=== PATIENT | male | born 1955 | race Caucasian/White ===

== ENCOUNTER 2018-02-27 07:50 | Emergency (ER) | payer BC ==
[~2018-02-27] VITALS: Ht 177.8 cm; Wt 93.2 kg
[2018-02-27 07:57] VITALS: TEMP 97.7
[2018-02-27 08:08] LABS: BASO % 0.6 % (0.0-2.0); EOS # 0.1 (0.0-0.7); EOS % 1.3 % (0-4.0); GRAN # 3.2 (1.4-6.5); GRAN % 67.5 % (42.2-75.2); HEMATOCRIT 43.9 % (42.0-52.0); LYMPH % 21.4 % (20.0-51.0); MEAN CELL VOLUME 94 fl (80.0-100.0); MEAN CORPUSCULAR HEMOGLOBIN 32 pg (27.0-31.0); MEAN CORPUSCULAR HGB CONC 34 g/dl (33.0-37.0); MEAN PLATELET VOLUME 10.2 fl (7.4-10.4); MONO # 0.4 (0.1-0.6); PLATELET COUNT 164 K/mm3 (130-400); RED BLOOD COUNT 4.68 M/mm3 (4.20-5.60); REDCELL DISTRIBUTION WIDTH-CV 12.3 % (11.5-14.5)
[2018-02-27 08:15] LABS: INR 1.7 (0.8-3.0); PROTHROMBIN TIME 19.8 SECONDS (9.7-12.8)
[2018-02-27 08:18] LABS: ALANINE AMINOTRANSFERASE 44 U/L (21-72); ALBUMIN 4.5 gm/dL (3.5-5.0); ALKALINE PHOSPHATASE 72 U/L (50-136); ANION GAP 10 mmol/L (7-16); AST,SGOT 30 U/L (15-37); BILIRUBIN,TOTAL 0.8 mg/dL (0.0-1.0); BLOOD UREA NITROGEN 17 mg/dL (9-20); CALCIUM 9.1 mg/dL (8.4-10.2); CARBON DIOXIDE 29 mmol/L (22-30); CHLORIDE 104 mmol/L (98-107); CREATININE, serum 0.97 mg/dL (0.66-1.25); GLUCOSE 177 mg/dL (74-106); LIPASE 229 U/L (23-300); PARTIAL THROMBOPLASTIN TIME 45.4 SECONDS (26.0-37.0); POTASSIUM 3.9 mmol/L (3.4-5.0); SODIUM 142 mmol/L (137-145); TOTAL PROTEIN 7.6 gm/dL (6.4-8.2)
[2018-02-27 08:31] LABS: TROPONIN-I < 0.012 ng/mL (0.000-0.034)
[2018-02-27] MEDS ORDERED: ASPIRIN 81M81 MG/TA2 PO (09:10)
[2018-02-27] MEDS ORDERED: LIPITOR 40MG TA40 MG PO (09:10)
[2018-02-27] MEDS ORDERED: NORVASC 10MG10 MG PO (09:10)
[2018-02-27] MEDS ORDERED: COREG 25MG25 MG/TAB PO (09:10)
[2018-02-27] MEDS ORDERED: CARDURA 8MG TAB8 MG PO (09:11)
[2018-02-27] MEDS ORDERED: IMDUR 30MG30 MG/TAB PO (09:12)
[2018-02-27] MEDS ORDERED: GLUCOTROL10 MG PO (09:12)
[2018-02-27] MEDS ORDERED: FISH OIL 1000MG1 CAP PO (09:12)
[2018-02-27] MEDS ORDERED: HCTZ 25MG TAB25 MG PO (09:13)
[2018-02-27] MEDS ORDERED: HYZAAR 12.5 MG-1 TAB PO (09:13)
[2018-02-27] MEDS ORDERED: GLUCOPHAGE1000 MG PO (09:13)
[2018-02-27] MEDS ORDERED: XARELTO20 MG PO (09:14)
[2018-02-27] MEDS ORDERED: MULTIPLE VITAMI1 CAP PO (09:14)
[2018-02-27 09:50] VITALS: BP 137/73; PULSE 62
== END 2018-02-27 09:50 | disposition short-term general hospital (02) ==
LOC: COL.ER 07:50
PROVIDERS: Emergency Medicine
DX: I20.0 Unstable angina (principal); I10 Essential (primary) hypertension; E11.9 Type 2 diabetes mellitus without complications; Z95.5 Presence of coronary angioplasty implant and graft; Z79.82 Long term (current) use of aspirin; Z79.84 Long term (current) use of oral hypoglycemic drugs
CPT/HCPCS: J1644; J2405; J7030